=== PATIENT | male | born 1970 | race Caucasian/White ===

== ENCOUNTER → 2020-11-20 | Outpatient (CLI) | payer OTHER ==
[~2020-11-20] MED LIST: AMPHETAMINE SAL30 MG PO; BUPROPION XL300 MG PO; DOXYCYCLINE HYC20 MG PO; FLONASE 0.05%50 MCG NASAL; IVERMECTIN TOP; MELOXICAM15 MG PO; MEN'S ONE DAIL1 EAC1 PO; PRINIVIL20 M1 PO; PROPECIA1 MG PO; SIMVASTATIN40 MG PO; SINGULAIR 10 MG10 MG PO; TURMERIC500 M2 PO; VITAMIN D350 MCG PO; XANAX 0.5 MG0.5 MG PO
== END ==
LOC: LAB 08:53
PROVIDERS: ATTEND Specialist
DX: Z01.812 Encounter for preprocedural laboratory examination (principal); Z20.822 Contact with and (suspected) exposure to COVID-19

== ENCOUNTER → 2020-11-23 | Outpatient (CLI) | payer OTHER ==
[~2020-11-23] VITALS: Ht 175.3 cm; Wt 83.5 kg
--- NOTE | 2020-11-26 16:57 | O ---
[facility] [place] [address] OPERATIVE REPORT Name: ARLEN LIVINGSTON Room #: [id number] Admission: 11/23/20 Attend Phys: Paco Santiago Discharge: Date of : 70 Report #: [id number] THIS REPORT FOR: cc: FAM - Family physician unknown FAM - Family physician unknown Paco Clark MD ~ DOC #: [id number] cc: Enrique Clark MD DATE OF SERVICE: 11/23/2020 PROCEDURE PERFORMED: Colonoscopy with biopsies. HISTORY OF PRESENT ILLNESS: The patient is a 50-year-old male who presents today for routine screening colonoscopy. No previous history of endoscopy. Denies any symptoms. No family history of colon cancer. DESCRIPTION OF PROCEDURE: The risks and benefits of the procedure were explained to the patient, those risks including but not limited to bleeding, perforation and the risk of sedation. He understood these risks and gave informed consent. Sedation was given using propofol per anesthesia. Next, a digital rectal exam was initially performed, which was normal. Next, using a standard Olympus colonoscope, the scope was placed in the patient's anus and advanced under direct vision to the cecum. The overall prep was excellent. The cecum and ileocecal valve were normal in appearance. The ascending colon was normal. In the transverse colon, a 3 mm sessile polyp was noted. This was removed with cold forceps. The descending colon was normal. In the sigmoid colon, a 4 mm sessile polyp was noted. This was removed with cold forceps. In the rectum, there is another 3 mm sessile polyp also removed with cold forceps. On retroflexion, no abnormalities were noted. The scope was then withdrawn and the procedure terminated. The patient tolerated the procedure well. IMPRESSION: 1. Three small colonic polyps. 2. Otherwise, normal colonoscopy. RECOMMENDATIONS: 1. Await biopsy results. 2. If polyps are hyperplastic, repeat in 10 years; if adenomatous polyps, repeat in 5 years. Thank you for allowing me to participate in his care. Paco Clark MD [facility]/[address] [address] OPERATIVE REPORT Name: YARAARLEN NOEMI Room #: REG CLInge Thompson#: [id number] Admission: 11/23/20 Attend Phys: Paco Santiago Discharge: Date of : 70 Report #: [id number] <ELECTRONICALLY SIGNED> By: Paco Clark MD 11/26/20 [phone] Paco Clark MD /nt
--- NOTE | 2020-11-26 17:06 | PATH ---
[facility] [address] [place] [address] PATHOLOGY RPT PROCEDURE Name: ZI IGNACIO Room #: REG RIYA Parisi.#: [id number] Admission: 11/23/20 Date of : 70 Discharge: Report #: [id number] Path Case #: [id number] [facility] Accession Number: [id number] . 01 Material submitted: . PART A: colon - TRANSVERSE POLYP. Modifiers: transverse PART B: sigmoid colon - SIGMOID COLON POLYP PART C: rectum - RECTAL POLYP . 01 Clinical history: . DTS/COLONOSCOPY/SCREENING . 02 Diagnosis: A. Polyp, transverse colon polyp, endoscopic biopsy: - Hyperplastic polyp. - Negative for dysplasia. . B. Polyp, sigmoid colon polyp, endoscopic biopsy: - Hyperplastic polyp. - Negative for dysplasia. . C. Polyp, rectal polyp, endoscopic biopsy: - Hyperplastic polyp. - Negative for dysplasia. . (IUV:yesenia; 11/26/2020) MBR 11/26/2020 1436 Local . 02 Electronically signed: . Elizabeth Yu MD, Pathologist NPI- [id number] . 01 Gross description: . A. Received in formalin labeled "Zi Ignacio transverse colon polyp" are 2 fragments of chaney-brown soft tissue measuring 0.3 x 0.3 x 0.3 cm and 0.5 x 0.3 x 0.3 cm. The specimen is submitted entirely in A1. . B. Received in formalin labeled "Zi Ignacio sigmoid colon polyp" are 2 fragments of chaney-brown soft tissue measuring 0.4 x 0.3 x 0.3 cm 0.5 x 0.3 x 0.3 cm. The specimen is submitted entirely in B1. . C. Received in formalin labeled "Zi Ignacio rectal polyp" are 2 fragments of chaney-brown soft tissue measuring 0.4 x 0.3 x 0.2 cm 0.3 x 0.2 x 0.2 cm. The specimen is submitted entirely in C1.([facility]; 11/24/2020) GZA/GZA 11/24/2020 1249 Local . 02 Pathologist provided ICD-10: [place] [address] PATHOLOGY RPT PROCEDURE Name: ZI IGNACIO Room #: REG CLI Donna#: [id number] Admission: 11/23/20 Date of : 70 Discharge: Report #: [id number] Path Case #: [id number] K63.5, K63.5, K62.1 . 02 CPT . 039856, [id number], [id number] Specimen Comment: A courtesy copy of this report has been sent to [phone], [phone] Specimen Comment: [id number] Specimen Comment: Report sent to / DR HI Performed at: [address], [place] [id number] MD Gama Tomlin MD Phone: [phone] Performed at: [address] [id number] MD Elizabeth Yu MD Phone: [phone]
== END | disposition home or self-care (01) ==
LOC: GI 07:38
PROVIDERS: ATTEND Specialist
DX: Z12.11 Encounter for screening for malignant neoplasm of colon (principal); K63.5 Polyp of colon; K62.1 Rectal polyp; I10 Essential (primary) hypertension; F32.9 Major depressive disorder, single episode, unspecified; F41.9 Anxiety disorder, unspecified; Z98.890 Other specified postprocedural states; Z79.899 Other long term (current) drug therapy
CPT/HCPCS: 62110; 62900